=== PATIENT | male | born 1960 | race Two or more races ===

== ENCOUNTER 2022-07-28 19:00 | Emergency (ER) | payer OTHER ==
[~2022-07-28] VITALS: Ht 167.6 cm; Wt 93.1 kg
[2022-07-28 19:05] VITALS: BP 168/77
== END 2022-07-28 23:01 | disposition left against medical advice (07) ==
LOC: EDBD 19:00 → ER 19:00
DX: S09.90XA Unspecified injury of head, initial encounter (principal); Z53.21 Procedure and treatment not carried out due to patient leaving prior to being seen by health care provider; W01.0XXA Fall on same level from slipping, tripping and stumbling without subsequent striking against object, initial encounter; Y93.89 Activity, other specified; Y92.89 Other specified places as the place of occurrence of the external cause; Y99.8 Other external cause status